=== PATIENT | female | born 1985 | race Caucasian/White ===

== ENCOUNTER 2019-04-03 07:23 | Observation (INO) | payer MEDICAID ==
[~2019-04-03] VITALS: Ht 154.9 cm; Wt 62.5 kg
[2019-04-03] VITALS (10 sets, daily range): BP systolic 111–129; BP diastolic 62–84
[~2019-04-03 07:23] MED LIST: HYDR-3164 PO; HYDROmorphone 2 MG/ML VIAL IV PRN; IV RINGERS,LACTATED 1000ML 1,000 ML IV SCH; MORPHINE SULFATE 2 MG/ML VIAL. IV PRN; ONDANSETRON PF 4 MG/2 ML VIAL. IV PRN; PROCHLORPERAZINE 10 MG/2 ML VIAL. IV PRN; fentaNYL PF VIAL 100 MCG/2 ML VIAL IV PRN
[2019-04-03] MEDS ORDERED: ONDA8TAB9 PO (08:02)
[2019-04-03] MEDS ORDERED: PROC10TA57 PO (08:03)
[2019-04-03] MEDS ORDERED: LIDOCAINE 2% PF 5 ML VIAL. ONE (08:24)
[2019-04-03] MEDS ORDERED: fentaNYL PF VIAL 100 MCG/2 ML VIAL ONE ×2 (08:24→10:36)
[2019-04-03] MEDS ORDERED: PROPOFOL 20 ML IV ONE (08:24)
[2019-04-03] MEDS ORDERED: ISOSULFAN BLUE 1% 50 MG/5 ML VIAL. SQ ONE ×2 (09:00→09:38)
[2019-04-03] MEDS ORDERED: BUPIVACAINE-EPI 0.5%-1:200000 MPF 30 ML VIAL. ONE (09:00)
[2019-04-03] MEDS ORDERED: SEVOFLURANE 31 TO 60 MINUTES. IH ONE (10:06)
[2019-04-03] MEDS ORDERED: ONDANSETRON PF 4 MG/2 ML VIAL. ONE (10:11)
[2019-04-03] MEDS ORDERED: FAMOTIDINE 20 MG/2 ML VIAL ONE (10:11)
[2019-04-03] MEDS ORDERED: DEXAMETHASONE SOD PHOS 4 MG/ML VIAL ONE (10:11)
[2019-04-03] MEDS ORDERED: KETOROLAC 30 MG/ML VIAL. ONE (10:12)
--- NOTE | 2019-04-03 11:02 | RAD ---
Specimen radiograph INDICATION: Node positive invasive lobular carcinoma. [place] node excisional biopsy specimen radiograph. COMPARISON: Left diagnostic mammogram 09/07/2018 FINDINGS: 2 specimens were submitted in separate cups for radiographic review. The larger specimen contains an open padlock-shaped biopsy marker overlying the reniform mass, compatible with a lymph node. The second specimen contains ovoid soft tissue suggestive of a portion of a solid mass such as a lymph node. No clip is present in this second specimen. IMPRESSION: [place] node specimen radiograph in two submitted samples shows presence of the biopsy clip in the larger of the 2 submitted specimens. These results were telephoned to the operating room at my request and on my behalf by Bhavani food technologist, at approximately 10:50 AM on April 03, 2019 Electronically signed by: Serina Shepard MD (04/03/2019 10:59 AM) [facility]
--- NOTE | 2019-04-03 11:31 | RAD ---
Left lumpectomy breast tissue specimen radiograph INDICATION: Left breast invasive lobular carcinoma, status post neoadjuvant chemotherapy. Specimen radiograph requested. COMPARISON: Post procedure left mammogram status post earlier same day needle localization. FINDINGS: The left breast tissue specimen is radiographed on a grid and shows the biopsy marker located over the I-8 grid hole. The specimen contains the spiculated mass, a hook wire passing through it, and a biopsy marker near one edge of the mass, likely the anterior surface. Surgical margins around the mass appear satisfactory by x-ray. IMPRESSION: Left lumpectomy breast tissue specimen contains the mass, biopsy marker and hook wire. Report called to the operating room by Bhavani product/device technologist, at my request and on my behalf at 11:25 AM on 04/03/2019. Electronically signed by: Serina Shepard MD (04/03/2019 11:28 AM) [facility]
[2019-04-03] MEDS ORDERED: IV NORMAL SALINE 1000ML BAG 1,000 ML IV SCH (12:07)
[2019-04-03] MEDS ORDERED: HYDROmorphone 2 MG/ML VIAL IV PRN (12:15)
[2019-04-03] MEDS ORDERED: 0.9 % SODIUM CHLORIDE 10 ML DISP.SYRIN. IV PRN (12:15)
[2019-04-03] MEDS ORDERED: ONDANSETRON PF 4 MG/2 ML VIAL. IVP PRN (12:15)
[2019-04-03] MEDS ORDERED: NALOXONE 0.4 MG/ML VIAL. IV PRN (12:15)
--- NOTE | 2019-04-03 12:22 | PDOC4 ---
Operative Note Operative Note Operative Note: Preoperative Diagnosis: Left breast cancer Postoperative Diagnosis: Same Procedure: Left segmental mastectomy with wire localization, left axillary sentinel lymph node biopsy, excision of left axillary lymph nodes, or removal of Port-A-Cath Surgeon: Oliverio Multicut Line Operator: Tricia JAMES Anesthesia: Gen EBL: 25 ml Specimen: Left axillary sentinel lymph nodes #1, #2 to pathology; L segmental mastectomy with wire localization, short stitch superficial, long stitch lateral; additional margins (superior, medial, inferior, deep); additional L axillary lymph nodes Drains: None Complications: None Indication: The patient is a 33-year-old female presented with lobular carcinoma of the left breast. There was initial lymph node involvement and she underwent neoadjuvant chemotherapy. Radiographic evaluation showed some response with shrinkage of the tumor. She strongly prefers breast conservation if at all possible and would like to attempt a left lumpectomy. The plan to incorporate a sentinel lymph node biopsy and removal of her Port-A-Cath. The risks of surgery were discussed which include bleeding, infection, scar tissue, pain, lymphedema, anesthetic risk, potential need for additional surgery or procedure. She understands and would like to proceed. Description: The patient was taken to the operating room following both needle localization and injection of lymphoseek in Radiology. She was then taken to the operating room where she was laid supine. Gen. anesthesia was performed. The bilateral chest and left axilla were prepped with ChloraPrep and draped in a standard surgical manner. Five mL of Lymphazurin were injected deep to the nipple and areolar complex. Several minutes were allowed to elapse. A small left axillary incision was made with a scalpel. Cautery dissection was carried down into the axillary tissues. There were 2 areas of increased nuclear uptake corresponding to lymph nodes. Both of these were harvested from surrounding tissues and both showed blue dye staining as well. There were labeled sentinel lymph nodes #1, #2. They were initially sent for specimen radiographs and the biopsy clip was identified in the first lymph node. The specimens were then sent to pathology. Frozen section evaluation showed no clear evidence of metastasis. Of note however is that her original lymph node biopsy was positive only with immunostaining. We proceeded then with the lumpectomy. A transverse incision was made near the 3 o'clock position of the areola. Cautery dissection was used for the lumpectomy. The breast tissue surrounding the distal portion of the wire was mobilized from the uninvolved breast tissue again with cautery. The tip of the wire was readily identified and well within the specimen. A short stitch temo the superficial margin and a long stitch temo the lateral margin. The lumpectomy specimen was then fully excised and sent to radiology. Specimen radiographs confirmed the clip and distal wire. We elected to take thin margins from the lumpectomy cavity which included the superior, medial, inferior, deep locations. These were all labeled and sent to pathology. Hemostasis was achieved with cautery. The subcutaneous tissue was closed with 3-0 Vicryl and the skin was approximated for Monocryl. I did elect to remove additional axillary lymph nodes. The bulk of the lymph nodes were present combined with adipose tissue and these were mobilized in a superior to inferior fashion. The dissection was not deep enough to encounter the axillary vein or the long thoracic or thoracodorsal nerves. The additional lymph nodes were sent to pathology. The subcutaneous tissue of the axilla were closed with 3-0 Vicryl and skin approximated with 4-0 Monocryl. We then directed our attention to the chest. An incision was made at the site of the prior port basement. With cautery dissection the capsule the port was opened. The attaching sutures were cut and the port was readily withdrawn. The remaining tract was oversewn with 3-0 Vicry l. Hemostasis was achieved with cautery. The skin was closed with 4-0 Monocryl. Sterile dressings were then applied. The patient tolerated the procedure well and was sent to the recovery room in stable condition. At the end of the case all counts were correct. OPHELIA SCHMITZ MD Apr 03, 2019 12:22
[2019-04-03] MEDS: fentaNYL PF VIAL 100 MCG/2 ML VIAL IV PRN ×2 (12:47→13:09)
[2019-04-03] MEDS: oxyCODONE/APAP 5/325 1 TAB TABLET PO PRN ×3 (14:07→18:50)
[2019-04-03] MEDS: IV 1/2 NORMAL SALINE 1,000 ML IV SCH ×2 (14:10→22:26)
--- NOTE | 2019-04-03 16:25 | RAD ---
Examination: 1. Ultrasound-guided left breast needle localization. 2. Post procedure mammogram 3. Left breast radiopharmaceutical injection for sentinel node mapping. INDICATION: 33-year-old woman status post neoadjuvant chemotherapy for left breast node positive invasive lobular carcinoma, initially diagnosed in August 2018. COMPARISON: Left breast diagnostic ultrasound of August 31, 2018, left postbiopsy mammogram of September 07, 2018, and reports on bilateral breast MRIs of September 18, 2018 and March 15, 2019. TECHNIQUE AND FINDINGS: Informed consent was obtained and an appropriate procedural pause observed. Using standard sterile technique, ultrasound guidance and local anesthesia with 1 percent lidocaine, a 7.5 cm Whalen needle was advanced from a lateral approach through the residual mass under ultrasound guidance and a hookwire was deployed through the mass. The needle was removed and the wire was left in place. Postprocedure mammogram documented satisfactory positioning of the hook wire relative to the biopsy marker and the residual mass which is obscured on mammography by patient's dense breast tissue. The biopsy marker identifying the breast mass is somewhat heart shaped on mammography. The patient's open lock shaped biopsy marker for the lymph node previously biopsied was not imaged at this visit. After confirmation of satisfactory positioning of the localizing wire, a total of 1.0 mCi of lymphoseek was injected in a single hypodermal lateral periareolar injection and the raised area was massaged. Patient was subsequently discharged in stable condition to follow up with her referring surgeon for further care and management. There were no apparent complications. IMPRESSION: Uncomplicated ultrasound-guided left breast needle localization, left breast malignant mass and left breast radiopharmaceutical injection for sentinel node mapping as described. Electronically signed by: Serina Shepard MD (04/03/2019 4:23 PM) [facility]
[2019-04-03] MEDS ORDERED: METOCLOPRAMIDE HCL 10 MG/2 ML VIAL. IVP PRN (21:30)
[2019-04-03] MEDS ORDERED: HYDROmorphone 2 MG/ML VIAL IVP PRN ×2 (21:30)
[2019-04-04] VITALS: BP 104/71
[2019-04-04] MEDS: oxyCODONE/APAP 5/325 1 TAB TABLET PO PRN ×2 (03:37→08:00)
[2019-04-04 03:40] VITALS: BP 120/78
[2019-04-04 09:00] VITALS: BP 111/75
[2019-04-04] MEDS ORDERED: OXYC1TAB15 PO (09:46)
--- NOTE | 2019-04-04 09:48 | DISCH ---
DISCHARGE INSTRUCTIONS Condition on Discharge Condition on Discharge: Stable Activity After Discharge Activity Instructions for Disc: Resume previous activity Bathing Instructions: Shower-keep dressing dry Lifting Instructions after Dis: No heavy lifting, No pulling or pushing Driving Instructions after Dis: Do not drive (while taking pain medication) Diet after Discharge Diet after Discharge: Regular Wound Incision Care Other wound/incision instructi: leave dressing in place until FU appt Contacting the [facility] after DC Call your doctor for: Concerns you may have Follow-Up Follow up with: Dr Duron 1 week, call to schedule [phone] JOBY CARVER APRN Apr 04, 2019 09:48
--- NOTE | 2019-04-04 10:16 | PDOC ---
JOBY CARVER APRN 04/04/19 1016: SURGICAL PROGRESS NOTE Subjective eating pain managed questions answered Vital Signs Vital Signs Date Time Temp Pulse Resp B/P (MAP) Pulse Ox O2 Delivery O2 Flow Rate FiO2 04/04/19 09:00 98.3 77 20 111/75 (87) 96 Room Air 98.3 04/03/19 12:24 10 I&O Intake and Output 04/04/19 07:00 Intake Total 850 ml Output Total 2305 ml Balance -1455 ml Intake IV Total 850 ml Output Urine Total 2230 ml Emesis 50 ml Estimated Blood Loss 25 ml General: Alert, Oriented X3, Cooperative Skin: Other (dressings dry) Labs Laboratory Tests Test 04/03/19 07:41 Bedside Urine HCG, Qualitative Hcg negative (Negative) Assessment/Plan dc home FU in office next week OPHELIA SCHMITZ MD 04/09/19 0744: SURGICAL PROGRESS NOTE Assessment/Plan Agree JOBY CARVER APRN Apr 04, 2019 10:16 OPHELIA SCHMITZ MD Apr 09, 2019 07:44
[2019-04-04 10:20] VITALS: BP 120/72
--- NOTE | 2019-04-04 11:20 | NUR ---
Discharge Note: YOLANDA HARRISON Discharge instructions and discharge home medications reviewed with Patient and a copy given. All questions have been answered and understanding verbalized. Patient ambulatory, discharged to to home with familiy with belongings present. Fernie Zayas RN
--- NOTE | 2019-04-05 10:54 | PDOC3 ---
Discharge Summary Visit Information Date of Admission: Apr 03, 2019 Date of Discharge: Apr 04, 2019 Admitting Diagnosis: left breast cancer Final Diagnosis left breast cancer Brief Hospital Course Allergies Allergies Coded Allergies Type Severity Reaction Last Updated Verified No Known Drug Allergies 04/03/19 No Vital Signs Vital Signs Date Time Temp Pulse Resp B/P (MAP) Pulse Ox O2 Delivery O2 Flow Rate FiO2 04/04/19 10:20 98.2 76 18 120/72 (88) 96 Room Air 98.2 Brief Hospital Course Ms. Zhao is a 33 old female who underwent Left segmental mastectomy with wire localization, left axillary sentinel lymph node biopsy, excision of left axillary lymph nodes, or removal of Port-A-Cath. Postoperatively tolerating diet, ambulating, and pain managed. Ready for discharge. Discharge Information Condition at Discharge: Stable Follow Up: Weeks (1) Disposition/Orders: D/C to Home Scheduled Ondansetron Hcl (Zofran) 8 Mg Tablet, 1 TAB PO Q8HRS for nausea, #30 Ref 1 (Reported) Entered as Reported by: JERE ROSAS on 04/03/19 08 Last Taken: Unknown Dose on 04/02/19 Last Action: New Order on 04/03/19801 by JERE ROSAS Prochlorperazine Maleate (Compazine) 10 Mg Tablet, 1 TAB PO Q6HRS for nausea for 30 Days, #120 Ref 0 (Reported) Entered as Reported by: JERE ROSAS on 04/03/19 08 Last Taken: Unknown Dose on 03/21/19 Last Action: New Order on 04/03/19 08 by JERE ROSAS Scheduled PRN Oxycodone/Apap 5-325 (Percocet 5-325 Mg Tablet ) 1 Each Tablet, 1 TAB PO PRN Q4HRS PRN for MILD PAIN, 1ST CHOICE, #30 Ref 0 Prescribed by: Joby Eisenberg on 04/04/19 0946 JOBY EISENBERG APRN Apr 05, 2019 10:54
== END 2019-04-04 11:20 | disposition home or self-care (01) ==
LOC: MAMMO 07:23 → 3 NORTH 12:43
PROVIDERS: ADMIT Surgery; ATTEND Surgery
DX: C50.912 Malignant neoplasm of unspecified site of left female breast (principal)
CPT/HCPCS: 19301; 38525; 38792; 76098; 76942; 77065; 81025; 96374; 96375; A7015; A9520; G0378; G0379; J0696; J1100; J1170; J1885; J2001; J2405; J2704; J2765; J3010; J3490; J7120; Q9968

== ENCOUNTER → 2019-05-10 | Outpatient (CLI) | payer MEDICAID ==
[~2019-05-10] MED LIST changes: -HYDROmorphone 2 MG/ML VIAL IV PRN; +IOHEXOL 240 MG/ML 50ML VIAL. PO ONE; +IOHEXOL 300 MG/ML 100ML VIAL. IV ONE; -IV RINGERS,LACTATED 1000ML 1,000 ML IV SCH; -MORPHINE SULFATE 2 MG/ML VIAL. IV PRN; +ONDA8TAB9 PO; -ONDANSETRON PF 4 MG/2 ML VIAL. IV PRN; +OXYC1TAB15 PO; +PROC10TA57 PO; -PROCHLORPERAZINE 10 MG/2 ML VIAL. IV PRN; -fentaNYL PF VIAL 100 MCG/2 ML VIAL IV PRN
--- NOTE | 2019-05-10 17:22 | RAD ---
PQRS Compliance Statement: One or more of the following individualized dose reduction techniques were utilized for this examination: 1. Automated exposure control 2. Adjustment of the mA and/or kV according to patient size 3. Use of iterative reconstruction technique CT CHEST ABD PELVIS W/CONTRAST Clinical Indication: Left breast invasive lobular cancer. Comparison: None. Technique: Helical CT imaging of the chest, abdomen and pelvis is performed after 75 cc of Omnipaque 300 IV contrast. Oral contrast also administered. Findings: There is left breast skin thickening. There is subareolar fluid collection that is probably seroma measuring 1.4 x 2.8 cm. There is a fluid collection in the left axilla that is probably seroma measuring 1.9 x 2.6 cm. There are 2 subcentimeter lower left axillary lymph nodes, image 20. There is residual thymus in the anterior mediastinum. There is no mediastinal or hilar adenopathy. Calcified subcarinal lymph nodes. The great vessels are normal caliber. There is no central pulmonary embolus. The cardiac size is normal, no pericardial effusion. There is no pleural abnormality. The central airways are patent. Calcified granuloma inferior lingula. The lungs are otherwise clear. The liver, gallbladder, spleen, pancreas, adrenal glands, abdominal aorta, and kidneys are normal. Stomach unremarkable. Narrowing of the duodenum as it crosses midline. The more proximal duodenum is not dilated. The aorta SMA angle is normal. There is no small bowel obstruction. There is no colon wall thickening. The appendix is normal. There is no abdominal adenopathy or free fluid. Urinary bladder is normal. Uterus and ovaries unremarkable. No pelvic free fluid. No osteolytic or blastic lesion is identified. IMPRESSION: 1. No CT evidence of metastatic disease. 2. Post therapy changes in the left breast including skin thickening, and probable seromas subareolar and left axilla. Electronically signed by: Juancarlos Zuñiga MD (05/10/2019 5:19 PM) [id number]
--- NOTE | 2019-05-10 17:25 | RAD ---
Nuclear medicine whole body bone scan History: Left breast invasive lobular carcinoma. Comparison: CT chest abdomen and pelvis were contrast, same day. Technique: Examination performed after intravenous administration of 25.5 mCi Technetium 99m MDP. Images of the whole body were obtained in the anterior and posterior projections. Findings: There is increased tracer uptake of the left mandible. There is mildly increased tracer uptake in the right mandible. This uptake is nonspecific but common etiology is periodontal disease. Tracer uptake in the spine is homogeneous. Tracer uptake in ribs is symmetric. Tracer uptake in the appendicular skeleton is symmetric. Tracer distribution in the soft tissues appears normal. No suspicious increased or decreased tracer uptake is otherwise seen. Impression: 1. No scintigraphic findings suspicious for bone metastasis. 2. There is increased tracer uptake of the mandible, left greater the right. Suggest correlate for periodontal disease. CT facial bones could further evaluate. Electronically signed by: Juancarlos Zuñiga MD (05/10/2019 5:22 PM) [id number]
== END | disposition home or self-care (01) ==
LOC: CT 08:00
PROVIDERS: ATTEND Internal Medicine Hematology & Oncology
DX: C50.412 Malignant neoplasm of upper-outer quadrant of left female breast (principal); M25.551 Pain in right hip; J84.10 Pulmonary fibrosis, unspecified; I89.8 Other specified noninfective disorders of lymphatic vessels and lymph nodes; Z17.0 Estrogen receptor positive status [ER+]
CPT/HCPCS: 71260; 74177; 78306; A9503; Q9966; Q9967